=== PATIENT | female | born 1955 | race Caucasian/White ===

== ENCOUNTER → 2018-06-06 | Outpatient (CLI) | payer OTHER ==
[~2018-06-06] MED LIST: DIFLUCAN150 MG PO; SEPTRA DS 800 M1 TAB PO; TRAMADOL HCL50 MG PO
== END | disposition home or self-care (01) ==
LOC: MAMMO 07:41
DX: Z12.31 Encounter for screening mammogram for malignant neoplasm of breast (principal)

== ENCOUNTER → 2019-10-15 | Outpatient (CLI) | payer OTHER ==
[2019-10-15 08:24] LABS: BASO # 0.1 10*3/uL (0.0-0.1); BASO % 1.1 % (0.0-1.0); EOS # 0.3 10*3/uL (0.0-0.4); EOS % 3.9 % (1.0-4.0); HEMATOCRIT 44.9 % (37.0-47.0); HEMOGLOBIN 14.7 g/dl (12.0-16.0); LYMPH # 2.1 10*3/uL (1.3-4.4); LYMPH % 31.8 % (27.0-41.0); MEAN CELL VOLUME 87.2 fl (81.0-99.0); MEAN CORPUSCULAR HGB 28.5 pg (27.0-31.0); MEAN CORPUSCULAR HGB CONC 32.7 g/dl (33.0-37.0); MEAN PLATELET VOLUME 9.5 fl (9.6-12.3); MONO # 0.5 10*3/uL (0.1-1.0); NEUT # 3.7 10*3/uL (2.3-7.9); NEUT % 55.7 % (47.0-73.0); PLATELET COUNT AUTOMATED 305 10*3/uL (130-400); RED BLOOD COUNT 5.15 10*6/uL (4.10-5.10); WHITE BLOOD COUNT 6.6 10*3/uL (4.8-10.8)
[2019-10-15 08:57] LABS: ALKALINE PHOSPHATASE 74 U/L (45-117); BILIRUBIN, DIRECT 0.1 mg/dL (0.0-0.2); BUN 15 mg/dl (7-24); CHLORIDE 108 mmol/L (98-107); CHOLESTEROL 207 mg/dL (<200); CREATININE 0.71 mg/dL (0.55-1.02); HDL CHOLESTEROL 57 mg/dl (40-60); LDL CHOLESTEROL 129 mg/dL (9-159); POTASSIUM 4.2 mmol/L (3.5-5.1); SGOT/AST 18 IU/L (3-35); SGPT/ALT 35 U/L (12-78); SODIUM 140 mmol/L (136-145); THYROXINE (T4) TOTAL 11.6 ug/dl (4.8-13.9); TOTAL PROTEIN 7.5 gm/dL (6.4-8.2); TRIGLYCERIDES 103 mg/dl (<150); VLDL CHOLESTEROL 21 mg/dL (6-40)
== END | disposition home or self-care (01) ==
LOC: LAB 07:11
PROVIDERS: Family Medicine
DX: Z00.00 Encounter for general adult medical examination without abnormal findings (principal)

== ENCOUNTER → 2020-06-18 | Outpatient (CLI) | payer OTHER | END | disposition home or self-care (01) | LOC: US 13:12 | PROVIDERS: ATTEND Nurse Practitioner Women's Health | DX: D25.9 Leiomyoma of uterus, unspecified (principal); R93.89 Abnormal findings on diagnostic imaging of other specified body structures ==

== ENCOUNTER → 2020-06-24 | Outpatient (CLI) | payer OTHER | END | disposition home or self-care (01) | LOC: MAMMO 07:46 | PROVIDERS: ATTEND Nurse Practitioner Women's Health | DX: Z12.31 Encounter for screening mammogram for malignant neoplasm of breast (principal) ==

== ENCOUNTER → 2022-10-26 | Outpatient (CLI) | payer MEDICARE ==
[2022-10-26 11:46] LABS: BASO # 0.1 10*3/uL (0.0-0.1); BASO % 0.8 % (0.0-1.0); EOS # 0.4 10*3/uL (0.0-0.4); EOS % 4.6 % (1.0-4.0); HEMATOCRIT 46.3 % (37.0-47.0); LYMPH # 2.6 10*3/uL (1.3-4.4); LYMPH % 31.3 % (27.0-41.0); MEAN CELL VOLUME 85.9 fl (81.0-99.0); MEAN CORPUSCULAR HGB CONC 32.6 g/dl (33.0-37.0); MEAN PLATELET VOLUME 9.2 fl (9.6-12.3); MONO # 0.4 10*3/uL (0.1-1.0); MONO % 5.3 % (3.0-9.0); NEUT # 4.7 10*3/uL (2.3-7.9); NEUT % 57.5 % (47.0-73.0); PLATELET COUNT AUTOMATED 327 10*3/uL (130-400); RED BLOOD COUNT 5.39 10*6/uL (4.10-5.10); RED CELL DISTRI WIDTH 12.8 % (0-14.5); WHITE BLOOD COUNT 8.2 10*3/uL (4.8-10.8)
[2022-10-26 12:06] LABS: ALKALINE PHOSPHATASE 89 U/L (46-116); BUN 12 mg/dl (9-23); CHLORIDE 101 mmol/L (98-107); CHOLESTEROL 196 mg/dL (<200); LDL CHOLESTEROL 126 mg/dL (9-159); POTASSIUM 3.9 mmol/L (3.4-5.1); SGPT/ALT 37 U/L (10-49); THYROID STIM HORMONE (HS) 1.216 uIU/ml (0.550-4.780); THYROXINE (T4) TOTAL 9.2 ug/dl (4.5-10.9); TOTAL PROTEIN 7.4 gm/dL (6.0-8.0); TRIGLYCERIDES 87 mg/dl (<150)
[2022-10-26 12:34] LABS: VITAMIN D, 25-HYDROXY 16.6 ng/mL (30-100)
== END | disposition home or self-care (01) ==
LOC: LAB 09:43 → MAMMO 10:00
PROVIDERS: Family Medicine; ATTEND Nurse Practitioner Women's Health
DX: Z12.31 Encounter for screening mammogram for malignant neoplasm of breast (principal); E78.00 Pure hypercholesterolemia, unspecified; R53.83 Other fatigue; E55.9 Vitamin D deficiency, unspecified; Z51.81 Encounter for therapeutic drug level monitoring; N64.9 Disorder of breast, unspecified

== ENCOUNTER → 2023-01-04 | Outpatient (CLI) | payer MEDICARE | END | disposition home or self-care (01) | LOC: RAD 15:22 | PROVIDERS: ATTEND Family Medicine | DX: J01.00 Acute maxillary sinusitis, unspecified (principal) ==

== ENCOUNTER → 2024-02-15 | Outpatient (CLI) | payer MEDICARE | END | disposition home or self-care (01) | LOC: RAD 10:08 | PROVIDERS: ATTEND Family Medicine | DX: N95.0 Postmenopausal bleeding (principal) ==

== ENCOUNTER 2024-06-21 11:49 | Emergency (ER) | payer MEDICARE ==
[~2024-06-21] VITALS: Ht 167.6 cm; Wt 91.6 kg
[2024-06-21] MEDS ORDERED: IBUPROFEN 800 MG TAB PO ONE (12:30)
[2024-06-21] MEDS ORDERED: TRAMADOL HCL50 MG PO (13:24)
== END 2024-06-21 13:42 | disposition home or self-care (01) ==
LOC: ED 11:49
DX: S46.912A Strain of unspecified muscle, fascia and tendon at shoulder and upper arm level, left arm, initial encounter (principal); Z88.0 Allergy status to penicillin; Z88.1 Allergy status to other antibiotic agents; Z88.8 Allergy status to other drugs, medicaments and biological substances; Z98.890 Other specified postprocedural states; W18.09XA Striking against other object with subsequent fall, initial encounter; Y93.89 Activity, other specified; Y92.511 Restaurant or cafe as the place of occurrence of the external cause; Y99.8 Other external cause status

== ENCOUNTER → 2025-01-19 | Outpatient (CLI) | payer MEDICARE | END | disposition home or self-care (01) | LOC: MAMMO 10:25 | PROVIDERS: ATTEND Nurse Practitioner Women's Health | DX: Z12.31 Encounter for screening mammogram for malignant neoplasm of breast (principal); M47.816 Spondylosis without myelopathy or radiculopathy, lumbar region; M47.892 Other spondylosis, cervical region; M43.12 Spondylolisthesis, cervical region; M46.02 Spinal enthesopathy, cervical region; M41.84 Other forms of scoliosis, thoracic region; J98.09 Other diseases of bronchus, not elsewhere classified; R92.323 Mammographic fibroglandular density, bilateral breasts ==

== ENCOUNTER → 2025-01-27 | Outpatient (CLI) | payer MEDICARE | END | disposition home or self-care (01) | LOC: MAMMO 09:09 → US 02-03 09:00 → MAMMO 02-04 09:00 → US 02-04 09:30 | PROVIDERS: ATTEND Family Medicine | DX: N63.15 Unspecified lump in the right breast, overlapping quadrants (principal); R59.0 Localized enlarged lymph nodes; R92.323 Mammographic fibroglandular density, bilateral breasts ==

== ENCOUNTER → 2025-02-03 | Outpatient (CLI) | payer MEDICARE ==
[2025-02-03 11:13] LABS: ACT PARTIAL THROMBO TIME 26.5 SECONDS (20.0-32.1)
== END | disposition home or self-care (01) ==
LOC: SDC 01:01 → EDSTATUS 11:00 → SDC 11:00
PROVIDERS: Radiology Diagnostic Radiology; ATTEND Family Medicine
DX: R59.1 Generalized enlarged lymph nodes (principal); C50.811 Malignant neoplasm of overlapping sites of right female breast; C77.3 Secondary and unspecified malignant neoplasm of axilla and upper limb lymph nodes